=== PATIENT | female | born 1995 | race Caucasian/White ===

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

== ENCOUNTER → 2017-01-04 | Outpatient (CLI) | payer BC ==
[2017-01-04 15:35] LABS: BASOPHILS # (AUTO) 0.03 10*3/UL; BASOPHILS % (AUTO) 0.4 % (0-1); EOSINOPHILS % (AUTO) 1.1 % (0-8); HEMATOCRIT 41.6 % (37.0-47.0); HEMOGLOBIN 13.9 g/dL (12.0-16.0); IMM GRAN % (AUTO) 0.1 % (0-5); IMM GRAN# (AUTO) 0.01 10*3/UL; LYMPHOCYTES # (AUTO) 2.14 10*3/uL; LYMPHOCYTES % (AUTO) 30.2 % (10-50); MEAN CORPUSCULAR HGB CONC 33.4 g/dL (33-37); MEAN PLATELET VOLUME 11.1 FL (7.4-12.2); MONOCYTES # (AUTO) 0.38 10*3/UL (0.3-0.8); MONOCYTES % (AUTO) 5.4 % (5-15); NEUTROPHILS # (AUTO) 4.45 10*3/UL; NEUTROPHILS % (AUTO) 62.8 % (50-80); RDW COEFFICIENT OF VARIATION 12.7 % (11.5-14.5); RED BLOOD COUNT 4.48 10^6/uL (4.20-5.40); WHITE BLOOD COUNT 7.09 10^3/uL (4.8-10.8)
[2017-01-04 15:43] LABS: PLATELET MORPHOLOGY COMMENT NORMAL MORPHOLOGY (NORM)
[2017-01-04 16:01] LABS: ASPARTATE AMINO TRANSFERASE 24 IU/L (8-39); BILIRUBIN,TOTAL 0.6 mg/dL (0.3-1.2); BLOOD UREA NITROGEN 10 mg/dL (7-22); BUN/CREATININE RATIO 14.28 (6-20); CALCIUM 9.9 mg/dL (8.7-10.7); CHLORIDE 105 meq/L (98-112); CREATININE 0.7 mg/dL (0.50-1.20); EST GLOMERULAR FILTRATION > 60 (>60 ml/min/1.73m(2)); GLUCOSE 64 mg/dL (78-110); POTASSIUM 4.2 meq/L (3.8-5.2); SODIUM 141 meq/L (135-145); TOTAL PROTEIN 7.8 g/dL (6.1-8.0)
[2017-01-04 17:03] LABS: FREE T4 (FREE THYROXINE) 1.28 ng/dL (0.93-1.71)
== END ==
LOC: MOB LAB 14:06
PROVIDERS: ATTEND Pediatrics Pediatric Endocrinology
DX: R00.2 Palpitations (principal); Z83.49 Family history of other endocrine, nutritional and metabolic diseases
CPT/HCPCS: 36415; 80053; 82306; 83519; 84439; 84443; 84445; 84481; 85025; 86376; 86800

== ENCOUNTER → 2017-01-22 | Outpatient (CLI) | payer BC ==
--- NOTE | 2017-01-25 10:39 | HOLTER ---
[facility] - [place], [place] Interpretive Statements This is a 48 hour Holter study done for "palpitations." An accompanying diary notes 5 patient labeled "events" but only two with actual symptoms reported of "sitting, slight palpitation" at 3:20 PM day 1, and "watching TV, felt a heavy beat" at 2:17 PM day 2. During these two symptomatic intervals there were no ectopics and the rhythm was the predominate normal sinus at rates of 83 and 73 BPM. The three other patient reported "events" were sinus tachycardias at 106 and 112 BPM and the only event associated with ectopy was at 14:15 PM day 2 when with NSR there was one possible ventricular ectopic. There were 217,352 total recorded beats of which only 19 were possible ventricular ectopics (with some suspected as noise or artifact). There were 22 possible atrial ectopics and no significant tachycardias or bradycardias or pauses. IMPRESSION: Benign 48 hour Holter study. Electronically Signed On 01-25-17 14:56:27 MDT by Sunny Mccormick MD [email or web address]
== END ==
LOC: RT 13:57
PROVIDERS: ATTEND Pediatrics Pediatric Endocrinology
DX: R00.2 Palpitations (principal)
CPT/HCPCS: 93225; 93226; 93227

== ENCOUNTER → 2017-02-22 | Outpatient (CLI) | payer BC ==
[2017-02-22 13:58] LABS: BILIRUBIN,URINE NEGATIVE (NEG); COLOR,URINE YELLOW; GLUCOSE, URINE (UA) NEGATIVE (NEG); NITRATE,URINE POSITIVE (NEG); OCCULT BLOOD,URINE LARGE (NEG); PH,URINE 5.5 (5.0-8.5); PROTEIN,URINE 100 mg/dl (NEG); UROBILINOGEN,URINE 0.2 mg/dL (0.2)
[2017-02-22 14:21] LABS: CLARITY,URINE CLEAR (CLEAR)
[2017-02-22 14:22] LABS: BACTERIA,URINE FEW; URINE SAMPLE TYPE CLEAN CATCH URINE; WBC,URINE 75-80
== END ==
LOC: MOB LAB 11:33
PROVIDERS: ATTEND Pediatrics Pediatric Endocrinology
DX: N30.01 Acute cystitis with hematuria (principal)
CPT/HCPCS: 81001; 87088

== ENCOUNTER → 2017-03-02 | Outpatient (CLI) | payer BC ==
[2017-03-02 13:20] LABS: BILIRUBIN,URINE NEGATIVE (NEG); COLOR,URINE YELLOW; GLUCOSE, URINE (UA) NEGATIVE (NEG); NITRATE,URINE NEGATIVE (NEG); OCCULT BLOOD,URINE NEGATIVE (NEG); PROTEIN,URINE NEGATIVE (NEG); UROBILINOGEN,URINE 0.2 mg/dL (0.2)
[2017-03-02 13:27] LABS: CLARITY,URINE SLIGHTLY CLOUDY (CLEAR)
[2017-03-02 13:28] LABS: RBC,URINE 0-2 /hpf; SQUAMOUS EPITHELIAL CELL,UR RARE; URINE SAMPLE TYPE CLEAN CATCH URINE
== END ==
LOC: LAB 13:01
PROVIDERS: ATTEND Pediatrics Pediatric Endocrinology
DX: R35.0 Frequency of micturition (principal)
CPT/HCPCS: 81001; 87088

== ENCOUNTER 2017-06-04 18:18 | Emergency (ER) | payer BC ==
[2017-06-04] MEDS ORDERED: diphenhydrAMINE 50 MG/1 ML VIAL IVP ONE (18:26)
[2017-06-04] MEDS ORDERED: KETOROLAC 15 MG/1 ML VIAL IVP ONE (18:26)
[2017-06-04] MEDS ORDERED: NORMAL SALINE 10 ML SYRINGE FLUSH IVP PRN (18:26)
[2017-06-04] MEDS ORDERED: Sodium Chloride 0.9% 1,000 ML PRIMARY IV ONE (18:26)
[2017-06-04] MEDS ORDERED: Prochlorperazine Edisylate Inj 10mg/2ml vial IVP ONE (18:26)
--- NOTE | 2017-06-04 18:30 | PDOC ---
Headache HPI - General Chief Complaint: Headache Stated Complaint: WORST HEADACHE Date Seen by Provider: 06/04/17 Time Seen by Provider: 18:27 Source: POSITIVE: Patient Exam Limitations: POSITIVE: No limitations Nurse's Notes Reviewed & Considered: Yes - History of Present Illness Initial Comments: The is a 21-year-old female who presents to the emergency department for evaluation of headache. Patient's symptoms were preceded by vomiting and diarrhea earlier today. This is a severe headache that has been slow in onset. Initially started as mild bifrontal which has progressed to severe diffuse headache. No specific exacerbating or relieving factors. There is no radiation. Patient describes it as a pressure and severe. She has had vomiting and diarrhea throughout the day. Patient denies any fevers. Patient denies abdominal pain. Patient does have a history of frequent headaches though this is more severe than usual. They typically go away with Excedrin however she has been unable to take Excedrin secondary to nausea and vomiting. - Patient Home Medications Home Medications: Home Medications Multivitamin with Minerals [Multiple Vitamin] 1 tab ORAL QD tab 12/11/13 Desogestrel-Ethinyl Estradiol [Desogen 28 Day Tablet] 1 tab PO DAILY #28 tab 08/10 Ondansetron [Zofran Odt] 4 mg PO TID PRN #10 tab.rapdis 06/04/17 - Patient Allergies Allergies/Adverse Reactions: Allergies Allergy/AdvReac Type Severity Reaction Status Date / Time benzoyl peroxide Allergy Intermediate RASH Verified 06/04/17 18:20 Past Medical History - heen HEENT History:  Additional HEENT History: WEARS GLASSES Cardiovascular History: Denies History Respiratory History: Asthma Additional Respiratory History: SEASONAL ALLERGY INDUCED Gastrointestinal History: Denies History Genitourinary History: Denies History Endocrine History: Denies History Musculoskeletal History:  Prosthesis or Implant: No Additional Musculoskeletal History: PLANTAR FASCITIS Neurological History: Frequent Headaches Blood Disorders: Denies History Psychiatric History: Denies History History of Sexually Transmitted Diseases: No Cancer History: Denies History History of MDRO: No History of Other Communicable Diseases: No Alcohol Use: None Substance Use Type: None Previous Surgical History: No Significant Family History: No pertinent family hx Past Medical History Reviewed: Reviewed - Changes Made ROS - Limitations ROS Limitations: No Limitations Constitution: REPORTS: Denies Symptoms Cardiovascular: REPORTS: Denies Cardiac Symptoms Respiratory: REPORTS: Denies Resp Symptoms Neurological: REPORTS: Headache Gastrointestinal: REPORTS: Nausea, Vomitting, Diarrhea Endocrine: REPORTS: Denies Symptoms Musculoskeletal: REPORTS: Denies MS Symptoms Genitourinary: REPORTS: Denies Symptoms Eyes: REPORTS: Denies Symptoms ENT: REPORTS: Denies Symptoms Skin: REPORTS: Denies Skin Symptoms Lympathic: REPORTS: Denies Lympathic Symptoms Psychiatric: POSITIVE: Denies Psych Symptoms Headache Exam - General Appearance General Appearance: POSITIVE: Alert, Cooperative, No Acute Distress, No Evidence of Trauma - HEENT Head / Face: POSITIVE: Atraumatic, Normal Inspection, No Facial Swelling Eyes: POSITIVE: Inspection Normal, PERRL, EOM's Intact Ears: POSITIVE: Ears Normal Inspection Nose: POSITIVE: Inspection Normal Oropharynx: POSITIVE: External Inspection Nml - Pupil Size Pupil Size: 5 mm: Bilateral - Neck Neck: POSITIVE: Normal Inspection, Supple. NEGATIVE: Stiff Neck, Meningismus - Respiratory / CVS Respiratory / CVS: POSITIVE: No Respiratory Distress, Heart Sounds Normal, Regular Rate/Rhythm, Breath Sounds Normal - Abdomen Abdomen: Soft: (All Quadrants), Normal Bowel Sounds: (All Quadrants), Denies Tenderness: (All Quadrants), No Splenomegaly: (All Quadrants), No Hepatomegaly: (All Quadrants), No Guarding: (All Quadrants), No Rebound: (All Quadrants) - Skin Skin: POSITIVE: Intact - Extremities Extremity: Non-Tender: (RLE), (LLE), Normal Inspection: (RLE), (LLE) - Neuro / Psych Higher Functions: POSITIVE: Alert, Oriented x3, Normal Speech, Mood Appropriate , Affect Appropriate Cranial Nerves: POSITIVE: Normal As Tested, No Evidence of Acute CVA Cerebellar: POSITIVE: Normal As Tested Sensorimotor: POSITIVE: No Motor Deficits, No Sensory Deficits. NEGATIVE: Weakness Headache Progress - Results Reviewed by me Lab Results:: Laboratory Results 06/04/17 Range/Units 19:15 WBC 9.80 (4.8-10.8) 10^3/uL RBC 4.60 (4.20-5.40) 10^6/uL Hgb 14.3 (12.0-16.0) g/dL Hct 41.8 (37.0-47.0) % MCV 90.9 (81-99) FL MCH 31.1 H (27-31) PG MCHC 34.2 (33-37) g/dL RDW Std Deviation 40.5 (39-50) fL RDW Coeff of Chacorta 12.3 (11.5-14.5) % Plt Count 220 (140-350) 10*3/uL MPV 10.9 (7.4-12.2) FL Sodium 138 (135-145) meq/L Potassium 4.0 (3.8-5.2) meq/L Chloride 106 (98-112) meq/L Carbon Dioxide 16 L (23-33) meq/L Anion Gap 16 (5-20) BUN 9 (7-22) mg/dL Creatinine 0.6 (0.50-1.20) mg/dL Estimated GFR > 60 (>60 ml/min/1.73m(2)) BUN/Creatinine Ratio 15.00 (6-20) Glucose 77 L (78-110) mg/dL Calculated Osmolality 283.0 (267-292) mOsm/kg Calcium 10.1 (8.7-10.7) mg/dL - Patient's Progress MDM / ED Course: Eladio is a 21-year-old female who presents to the emergency department for evaluation of headache. Her vital signs are unremarkable and examination demonstrates well-appearing female in no acute distress. She has a nonfocal neurologic exam. Differential diagnosis includes but is not limited to headache , dehydration, gastroenteritis, electrolyte abnormality. Given the headache being swollen onset I low suspicion for acute intracranial hemorrhage and it is acute in nature making chronic disease entities such as tumor less likely. Patient's laboratory studies reassuring. She did have some mild hypoglycemia but did tolerate oral intake here of juice. Patient was treated with Compazine , Toradol, Benadryl with improvement in her headache and was back to baseline. I suspect her headache is most likely from dehydration secondary to vomiting and diarrheal illness. Patient was discharged in stable condition. Due to difficulty obtaining IV access an ultrasound guided IV is placed by myself in the left antecubital fossa. Patient tolerated procedure well without Occasional. Patient Care Time - Estimated PCT Patient Care Time (In Minutes): 25 Vital Signs - Recent Vital Signs Vital Signs: Vital Signs (Last 8 hours) Temp Pulse Resp BP Pulse Ox 06/04/17 19:39 97.3 F 88 20 130/81 99 06/04/17 18:19 97.3 F 88 20 130/81 99 - VS Reviewed Vital Signs Reviewed: Yes Discharge Clinical Impression: Headache Condition: Good Prescriptions / Orders: Ondansetron [Zofran Odt] 4 mg PO TID PRN #10 tab.rapdis PRN Reason: Nausea Patient Instructions Given at Discharge: Acute Headache (ED) Additional Instructions: Thank you for coming to the emergency department. Please continue to use Excedrin or acetaminophen as needed for headaches. Make sure that you drink plenty of fluids. Use nausea medication as needed. Please follow-up with your primary care provider as needed and return to the emergency department for any worsening symptoms. Follow Up With: SAMIRA LIVINGSTON [Primary Care Provider] -
[2017-06-04 18:31] VITALS: RESP 20; TEMP 97.3
[2017-06-04 19:33] LABS: HEMATOCRIT 41.8 % (37.0-47.0); HEMOGLOBIN 14.3 g/dL (12.0-16.0); MEAN CORPUSCULAR HEMOGLOBIN 31.1 PG (27-31); MEAN CORPUSCULAR HGB CONC 34.2 g/dL (33-37); MEAN CORPUSCULAR VOLUME 90.9 FL (81-99); MEAN PLATELET VOLUME 10.9 FL (7.4-12.2); RED BLOOD COUNT 4.6 10^6/uL (4.20-5.40)
[2017-06-04 19:43] LABS: BLOOD UREA NITROGEN 9 mg/dL (7-22); CALCIUM 10.1 mg/dL (8.7-10.7); EST GLOMERULAR FILTRATION > 60 (>60 ml/min/1.73m(2))
[2017-06-04] MEDS ORDERED: Ondansetron ODT Tab 4 MG TAB PO SCH (20:00)
== END 2017-06-04 20:03 | disposition home or self-care (01) ==
LOC: ER 18:18
DX: R51 Headache (principal); R11.2 Nausea with vomiting, unspecified; R19.7 Diarrhea, unspecified
CPT/HCPCS: 80048; 85027; 96361; 96374; 96375; 99283 ×2; J0780; J1200; J1885; J7030